=== PATIENT | male | born 1960 | race Caucasian/White ===

== ENCOUNTER 2016-10-28 17:35 | Emergency (ER) | payer OTHER ==
[2016-10-28 18:54] LABS: Hematocrit 38.7 % (42.0-52.0); Hemoglobin 13.1 gm/dL (13.5-18.0); Mean Cell Volume 85.6 fl (78-100); Mean Corpuscular Hgb Conc 33.9 g/dl (32-36); Mean Platelet Volume 8.7 fl (6.0-9.5); Platelet Count 253 K/mm3 (150-450); Red Blood Count 4.52 M/mm3 (4.7-6.0); Red Cell Distribution Width 12.3 % (11.5-14.0); White Blood Count 13.5 K/mm3 (4.0-10.5)
[2016-10-28 19:07] LABS: Total Cells Counted 100
--- NOTE | 2016-10-28 19:09 | ERNOTE ---
<Gabby Seals - Last Filed: 10/28/16 21:04> Syncope ER HPI Stated Complaint: poss stroke Source: family, EMS Exam Limitations: clinical condition Allergies/Adverse Reactions: Allergies ampicillin [Ampicillin] Allergy (Verified 07/17/12 19:31) Home Medications: HOME MEDICATIONS Coricidin Hbp Cold & Flu Tab PRN 07/17/12 [Last Taken 07/17/12 18:00] Lisinopril [Zestril] 40 mg PO ONCE 07/17/12 [Last Taken Unknown] Simvastatin [Simvastatin (Zocor)] 40 mg PO HS 07/17/12 [Last Taken Unknown] glipiZIDE [Glipizide ER] 5 mg PO DAILY 07/17/12 [Last Taken Unknown] metFORMIN HCL [Glucophage Xr] 1,000 mg PO DAILY 07/17/12 [Last Taken Unknown] Ondansetron HCl [Zofran] 1 - 2 tab PO Q8H PRN #10 tab 10/28/16 [Last Taken Unknown] - History of Present Illness Narrative: Patient has a history of hypertension and two CVAs, the second of which left him with a right sided deficit.He has been in the senior living since, also has a possible history of seizures. Per senior living he went to the bathroom with assistance when he became less responsive, diaphorectic and his blood pressure dropped to the 80's systolic. He never lost consciousness, did not fall, no injury. Patient came by EMS and denies any current problems. Limited history is available from patient Prior Episodes: Present: no prior history Character of event: Present: no loss of consciousness Location of Injury: Present: none Current Symptoms: Absent: blurred vision Review of Systems - Narrative Narrative: limited history available from patient - Review of Systems Constitutional: Absent: recent illness, fever Respiratory: Absent: shortness of breath Cardiology: Absent: chest pain Gastrointestinal/Abdominal: Absent: nausea, vomiting, abdominal pain Genitourinary: Present: no symptoms reported Neurological: Absent: headache - Patient's Past Medical History Patient History - Medical: Diabetes Type 2 Patient History - Cardiac/Respiratory: Hypertension, Hyperlipidemia - Social History Living Situations: senior living Physical Exam - Physical Exam General Appearance: Present: wd/wn, alert, no apparent distress Eye Exam: Normal inspection: bilateral, PERRL: bilateral Ears, Nose, Throat: Present: normal pharynx Respiratory: Present: no respiratory distress, normal breath sounds, no accessory muscle use, lungs clear Cardiovascular/Chest: Present: regular rate, rhythm, no murmur Gastrointestinal/Abdominal: Present: normal bowel sounds, nontender, nondistended, soft Extremity Exam: Present: no edema Neurological Exam: Present: alert, normal mood/affect, disoriented to situation , other - right sided weakness chronic Skin Exam: Present: normal color, warm/dry ED Progress - Results and Orders Patient's Lab Results:: I have reviewed the patient's lab results. - Vital Signs Patient's Vital Signs:: I have reviewed the patient's vital signs. Vital Signs: Vital Signs 10/28/16 10/28/16 18:12 18:55 Temperature 37.0 C 37.0 C Pulse Rate 83 82 Respiratory 20 18 Rate Blood Pressure 113/66 124/81 O2 Sat by Pulse 99 97 Oximetry - EKG EKG: NSR, LBBB - incomplete, nonspecific ST T wave changes, other - no acute changes, no previous EKG read: Interp. by me - Progress/Reassessment Chief Complaint: Altered Mental Status Progress Note-Subjective: 10/28/16 21:08 patient has had two large diarrheal stools, BP stable, will get abdomen Xray and sign out to oncoming ERP - Transfer of Care Physician Sign Out: Gabby Seals Receiving Physician: Wesley Ramon Departure Clinical Impression: Vasovagal near syncope, Gastroenteritis - Departure Disposition: Home Follow Up Needed Condition: Fair Instructions: Viral Gastroenteritis, Adult, [id number] Prescriptions: Ondansetron HCl [Zofran] 1 - 2 tab PO Q8H PRN #10 tab PRN Reason: Nausea <Wesley Ramon - Last Filed: 10/29/16 04:05> ED Progress - Vital Signs Vital Signs: Vital Signs 10/28/16 10/28/16 10/28/16 18:12 18:23 18:55 Temperature 37.0 C 37.0 C Pulse Rate 83 88 82 Respiratory 20 18 Rate Blood Pressure 113/66 124/81 O2 Sat by Pulse 99 97 Oximetry 10/28/16 10/28/16 10/28/16 19:26 19:48 20:23 Temperature Pulse Rate 87 84 82 Respiratory 18 20 18 Rate Blood Pressure 113/61 116/69 113/66 O2 Sat by Pulse 99 98 99 Oximetry 10/28/16 10/28/16 10/28/16 21:27 21:55 22:05 Temperature Pulse Rate 87 88 85 Respiratory 18 20 18 Rate Blood Pressure 107/69 98/57 112/71 O2 Sat by Pulse 98 97 99 Oximetry 10/28/16 22:34 Temperature Pulse Rate 86 Respiratory 20 Rate Blood Pressure 127/80 O2 Sat by Pulse 98 Oximetry - X-Ray X-Ray #1 X-Ray: abdomen Interpretation: Interp. by nh X-ray Comments: Non-specific bowel gas pattern associated with diarrhea. No free air no obstruction - Progress/Reassessment Progress Note-Subjective: 10/28/16 22:[address] Seals. xray and lab work reviewed. Pt examined. Pt alert, denies symptoms at this time. BP has been stable.
[2016-10-28 19:16] LABS: ALT 44 U/L (19-67); AST 21 U/L (0-48); Albumin * 3.3 gm/dl (3.4-5.0); Alkaline Phosphatase * 53 U/L (50-170); Anion Gap 10.4 mmol/L (6.8-13.8); BUN/Creatinine Ratio 14.9 (9.0-21.6); Bilirubin, Total 0.4 mg/dL (0.0-1.1); Blood Urea Nitrogen 23 mg/dL (6-23); Ca. Corrected For Albumin 8.9 mg/dL (8.4-10.2); Calcium * 8.7 mg/dL (7.9-10.9); Carbon Dioxide 30.3 mmol/L (24-32.6); Chloride 102 mmol/L (97-106); Glucose * 147 mg/dL (70-110); Potassium 3.7 mmol/L (3.4-4.6); Sodium 139 mmol/L (132-142); Total Protein 6.3 gm/dL (6.2-8.2); Troponin I Less than 0.017 ng/ml (0.00-0.10)
[2016-10-28 19:19] LABS: Atypical (Reactive) Lymph 3 % (0-2); Band 3 % (0-2.0); Lymphocyte 7 % (20-51); Monocyte 4 % (0-9); Neutrophil 83 % (42-75); Neutrophil # 11.2 K/mm3 (1.3-6.0); Platelet Estimate Normal (NORMAL); RBC Morphology Normal (NORMAL)
[2016-10-28 21:43] LABS: Urine Bilirubin Negative (NEGATIVE); Urine Blood Negative /ul (NEGATIVE); Urine Ketone 5 mg/dL (NEGATIVE); Urine Nitrite Negative (NEGATIVE); Urine Protein Negative (NEGATIVE); Urine Specific Gravity 1.025 SP.GR. (1.005-1.030); Urine Urobilinogen Normal (NORMAL); Urine pH 5.5 pH (5.0-7.0)
[2016-10-28 21:52] LABS: Urine Appearance Clear; Urine Bacteria 4+; Urine Color Yellow; Urine RBC None Seen /hpf (0-5); Urine WBC 0-5 /hpf (0-5)
[2016-10-28] MEDS ORDERED: ONDANSETRON 4 MG TAB.RAPDIS PO ONE (23:00)
[2016-10-28] MEDS ORDERED: ONDANSETRON 4 MG TAB.RAPDIS ONE (23:02)
[2016-10-29 01:10] VITALS: BP 113/68
--- OUTSIDE RECORDS SUMMARY | 2016-10-29 11:10 | XMS REPORT | Continuity of Care Document ---
:1960 Author Organization [facility] ([facility]) Address [address] [place] [address] Phone [phone] Care Team Providers Name Role Phone Angel Apple Primary Care Provider [phone] Source Comments This disclosure is being made pursuant to the Care Everywhere program, applicable federal and state laws, and may not contain all informaitonavailable regarding this patient.[facility] ([facility]) Active Allergies and Adverse Reactions No Known Allergies Current Medications Prescription Sig. Disp. Refills Start Date End Date Status amLODIPine 10 mg tablet Take 10 mg by Active mouth daily. clopidogrel 75 mg tablet Take 75 mg by Active mouth daily. loratadine 10 mg tablet Take 10 mg by Active mouth daily. doxazosin 4 mg tablet Take 4 mg by Active mouth daily. glipiZIDE 5 mg tablet Take 5 mg by Active mouth daily. hydrochlorothiazide 50 mg Take 50 mg by Active tablet mouth daily. lisinopril 40 mg tablet Take 40 mg by Active mouth daily. metFORMIN 1,000 mg tablet Take 1,000 mg by Active mouth daily. levETIRAcetam 250 mg tablet Take 500 mg by Active mouth at bedtime. 250mg in AM levothyroxine 25 mcg tablet Take 25 mcg by Active mouth every morning before breakfast. simvastatin 20 mg tablet Take 20 mg by Active mouth every evening. PARoxetine 30 mg tablet Take 30 mg by Active mouth daily. aspirin 325 mg tablet Take 325 mg by Active mouth daily. metoPROLol tartrate 100 mg Take 100 mg by Active tablet mouth 2 times daily. Active Problems Problem Noted Date CVA (cerebral vascular accident) Hyperlipidemia Hypertension Depression Hemiparesis affecting dominant side as late effect of cerebrovascular accident Coronary artery disease Sleep apnea Diabetes mellitus Asymptomatic PVCs Social History Tobacco Use Types Packs/Day Years Used Date Never Smoker Alcohol Use Drinks/Week oz/Week Comments No Last Filed Vital Signs Vital Sign Reading Time Taken Blood Pressure 100/62 02/19/2016 1:32 PM CDT Pulse 70 02/19/2016 1:32 PM CDT Temperature - - Respiratory Rate - - Height - - Weight 102.513 kg (226 lb) 02/19/2016 1:32 PM CDT Body Mass Index - - Oxygen Saturation - - Plan of Care Health Maintenance Due Date Last Done Comments HCV Screening 1960 Hepatitis B Vaccine (1 of 3 - Primary Series) 1960 Tdap Vaccine 1973 DIABETIC: Cholesterol 1980 Diabetic: Hdl 1980 DIABETIC: Hemoglobin A1C 1980 Diabetic: Ldl 1980 DIABETIC: Microalbumin 1980 DIABETIC: Triglycerides 1980 MMR Vaccine 1980 Td Vaccine 1980 Pneumococcal Vaccine (1 of 1 - PPSV23) 1981 Colonoscopy 05/08/2012 Prostate Cancer Screening 2012 Influenza Vaccine: Seasonal (#1) 12/31/2015 DIABETIC: Foot Exam 02/03/2016 DIABETIC: Retinal Eye Exam 02/03/2016 Results from Last 3 Months Not on file
== END 2016-10-29 00:30 | disposition home or self-care (01) ==
LOC: ER 17:35
DX: R55 Syncope and collapse (principal); A08.4 Viral intestinal infection, unspecified

== ENCOUNTER 2016-10-29 11:58 | Inpatient (IN) | payer OTHER ==
--- NOTE | 2016-10-29 12:33 | ERNOTE ---
Medical Problem HPI - Narrative Date of Service: 10/29/16 - General Chief Complaint: Nausea/Vomiting Time Seen by Provider: 10/29/16 12:31 Source: patient, family, old records Exam Limitations: other - patient unable to give much history - Immun/Allergies/Home Medications Immunizations: IMMUNIZATION HX Immunizations Up to Date Yes History of Influenza Vaccine Yes Allergies/Adverse Reactions: Allergies ampicillin [Ampicillin] Allergy (Verified 10/29/16 12:04) Home Medications: HOME MEDICATIONS Coricidin Hbp Cold & Flu Tab PRN 07/17/12 [Last Taken 07/17/12 18:00] Lisinopril [Zestril] 40 mg PO ONCE 07/17/12 [Last Taken Unknown] Simvastatin [Simvastatin (Zocor)] 40 mg PO HS 07/17/12 [Last Taken Unknown] glipiZIDE [Glipizide ER] 5 mg PO DAILY 07/17/12 [Last Taken Unknown] metFORMIN HCL [Glucophage Xr] 1,000 mg PO DAILY 07/17/12 [Last Taken Unknown] Ondansetron HCl [Zofran] 1 - 2 tab PO Q8H PRN #10 tab 10/28/16 [Last Taken Unknown] - History of Present History Narrative: 56 y/o male brought to the ED by ambulance for low blood pressure. He was evaluated here yesterday for diarrhea. This has continued today. He was also reported to be vomiting but the patient and his family deny any emesis. He had several episodes of diarrhea in the department last night. He tested negative for C.Diff. The stool was also hemocult negative. His urine showed 4+ bacteria. The preliminary urine culture shows no growth. His WBC was elevated at 13.5. His abdominal films showed scattered air fluid levels consistent with diarrhea. His blood sugar is reported to have been 299 [facility] the [facility] today. 1459 - Spoke with his nurse from [facility], she reports that his diarrhea started yesterday and he has not been vomiting. She also reports that there have not been other residents with GI symptoms. Review of Systems - Review of Systems Constitutional: Present: fatigue, malaise, decreased activity level. Absent: fever, chills EYE: Present: no symptoms reported ENT: Present: no symptoms reported Respiratory: Absent: shortness of breath, cough Cardiology: Absent: chest pain, syncope Gastrointestinal/Abdominal: Present: nausea, diarrhea, abdominal pain - cramping prior to bowel movements, eating less, drinking less. Absent: vomiting Genitourinary: Absent: dysuria Musculoskeletal: Present: no symptoms reported Skin: Absent: rash, lesions, change in color Neurological: Absent: headache, dizziness/light-headedness Endocrine: Present: no symptoms reported Hematologic/Lymphatic: Present: no symptoms reported Psych: Present: no symptoms reported - Patient's Past Medical History Patient History - Medical: Diabetes Type 2, Depression, Hypothyroidism, Obesity , Seizures Patient History - Cardiac/Respiratory: Coronary Heart Disease, CVA/Stroke, Hypertension, Hyperlipidemia Patient History - Cancer: No Hx of Cancer Patient History - Surgical Procedures: No surgical history Patient History - Other: None - Social History [facility] Abuse History: No History of abuse Psych History: No pertinent hx Smoking Status: Never smoker Alcohol Use: none Drug Use: none - Immunizations Immunizations Up to Date: Yes History of Influenza Vaccine: Yes Physical Exam - Physical Exam General Appearance: Present: alert, no apparent distress, obese Eye Exam: Normal inspection: bilateral Neck: Present: normal inspection, nontender, supple Respiratory: Present: no respiratory distress, normal breath sounds, no accessory muscle use, lungs clear Cardiovascular/Chest: Present: no murmur, normal peripheral pulses, tachycardia Gastrointestinal/Abdominal: Present: soft, tenderness, abnormal bowel sounds - hyeractive, distended - obese Extremity Exam: Present: normal inspection, no edema Neurological Exam: Present: alert, oriented, normal mood/affect Skin Exam: Present: normal color, warm/dry ED Progress - Results and Orders Patient's Lab Results:: I have reviewed the patient's lab results. - Vital Signs Patient's Vital Signs:: I have reviewed the patient's vital signs. Vital Signs: Vital Signs 10/29/16 11:59 Temperature 37.2 C Pulse Rate 99 Respiratory 18 Rate Blood Pressure 95/60 O2 Sat by Pulse 96 Oximetry - CT/Ultrasound CT/Ultrasound Narrative: Technique: CT Abdomen/Pelvis W/O Contrast Findings: Exam is limited due to lack of IV and oral contrast. Lung bases are essentially clear. The liver and spleen appear unremarkable on noncontrast imaging. No secondary signs of inflammatory change within the gallbladder. No calcified gallstones. Adrenal glands are within normal limits. There is no nephrolithiasis or obstructive uropathy. The pancreas demonstrates no peripancreatic inflammatory change. There is a small hiatal hernia. The stomach is distended. No evidence for intestinal obstruction appreciated. The appendix is normal. The colon is slightly redundant and fluid-filled compatible with diarrhea. Nonspecific density within the mesentery of the left lower quadrant could represent reactive lymph nodes or focal nonaggressive inflammatory change. Bladder is unremarkable. There is some atherosclerosis of the aorta. No free air or free fluid. No loculated fluid collection. Fat- containing left inguinal hernia. Osseous structures demonstrate no suspicious abnormality. IMPRESSION: 1. No definable acute intra-abdominal or pelvic process on this noncontrast CT scan. Please see findings above. Electronically signed by Alex Jacobo M.D.. - Progress/Reassessment Chief Complaint: Nausea/Vomiting Progress:: Improved Progress Note-Subjective: 10/29/16 14:[address], now vomiting. Zofran ordered. 2nd liter of IV NS infusing. 10/29/16 15:12 No improvement with Zofran. Reglan ordered. Dr. Conner contacted regarding admission, will admit obs status. Lactic acid 3.4 with a significant decline in renal function today, likely d/t dehydration. WBC has decreased from 13.5 to 9.3. Blood cultures are pending. Urine culture from yesterday's visit also pending (prelim negative). Stool culture and repeat CDiff ordered but no stool has yet been collected today. BP has improved with fluids and is currently 136/ 78. HR primary in 90's after running in the low 100's initially. Will order Cipro and Flagyl empirically. Patient and family in agreement with plan. Departure - Departure Clinical Impression: Vomiting and diarrhea, Dehydration, Acute renal injury due to hypovolemia Disposition: [facility] Condition: Fair
[2016-10-29] MEDS ORDERED: NORMAL SALINE 1,000 ML IV ONE ×3 (12:39→15:23)
[2016-10-29 12:50] LABS: Hematocrit 41.4 % (42.0-52.0); Hemoglobin 14.2 gm/dL (13.5-18.0); Mean Cell Volume 84.3 fl (78-100); Mean Corpuscular Hemoglobin 28.9 pg (27-31); Mean Corpuscular Hgb Conc 34.3 g/dl (32-36); Mean Platelet Volume 9.1 fl (6.0-9.5); Neutrophil # 7.9 K/mm3 (1.3-6.0); Neutrophil % 84.9 % (42-75.0); Platelet Count 248 K/mm3 (150-450); Red Blood Count 4.91 M/mm3 (4.7-6.0); Red Cell Distribution Width 12.4 % (11.5-14.0); White Blood Count 9.3 K/mm3 (4.0-10.5)
--- OUTSIDE RECORDS SUMMARY | 2016-10-29 13:05 | XMS REPORT | Continuity of Care Document ---
:1960 Author Organization [facility] ([facility]) Address [address] [place] [address] Phone [phone] Care Team Providers Name Role Phone Angel Apple Primary Care Provider [phone] Source Comments This disclosure is being made pursuant to the Care Everywhere program, applicable federal and state laws, and may not contain all informaitonavailable regarding this patient.[facility] ([facility]) Active Allergies and Adverse Reactions No Known [...]
[2016-10-29 13:07] LABS: Albumin * 3.2 gm/dl (3.4-5.0); BUN/Creatinine Ratio 18.6 (9.0-21.6); Bilirubin, Total 0.3 mg/dL (0.0-1.1); Ca. Corrected For Albumin 8.7 mg/dL (8.4-10.2); Calcium * 8.4 mg/dL (7.9-10.9); Carbon Dioxide 24.8 mmol/L (24-32.6); Potassium 3.8 mmol/L (3.4-4.6); Total Protein 6.4 gm/dL (6.2-8.2)
[2016-10-29] MEDS ORDERED: ONDANSETRON HCL/PF 2 MG/ML VIAL ONE (14:40)
[2016-10-29] MEDS ORDERED: ONDANSETRON HCL/PF 2 MG/ML VIAL IV ONE (14:40)
[2016-10-29] MEDS ORDERED: METOCLOPRAMIDE HCL 5 MG/ML VIAL IV ONE (15:12)
--- OUTSIDE RECORDS SUMMARY | 2016-10-29 15:15 | XMS REPORT | Continuity of Care Document ---
:1960 Author Organization [facility] ([facility]) Address [address] [place] [address] Phone [phone] Care Team Providers Name Role Phone Angel Apple Primary Care Provider [phone] Source Comments This disclosure is being made pursuant to the Care Everywhere program, applicable federal and state laws, and may not contain all informaitonavailable regarding this patient.[facility] ([facility]) Active Allergies and Adverse Reactions No [...]
[2016-10-29] MEDS ORDERED: METOCLOPRAMIDE HCL 5 MG/ML VIAL ONE (15:16)
[2016-10-29] MEDS ORDERED: CIPROFLOXACIN LACTATE/D5W 400 MG/200 ML BAG IV SCH (15:30)
[2016-10-29] MEDS ORDERED: NORMAL SALINE 200 ML IV ONE (16:00)
[2016-10-29] MEDS ORDERED: ACETAMINOPHEN 325 MG TABLET PO PRN (16:38)
[2016-10-29] MEDS ORDERED: ONDANSETRON 4 MG TAB.RAPDIS PO PRN (16:38)
[2016-10-29] MEDS ORDERED: ONDANSETRON HCL/PF 2 MG/ML VIAL IV PRN (16:39)
--- NOTE | 2016-10-29 16:52 | HP ---
Chief Complaint - Chief Complaint Date of Service: 10/29/16 Time of Service: 16:48 Chief Complaint: Diarrhea History of Present Illness: The patient is a 56-year-old male who was brought to the emergency department via ambulance both last night and again this morning. I am his primary care provider and I was contacted yesterday by [facility] and was told that the patient was having diarrhea and his blood pressure was low and he was somewhat lethargic. Orders were given for the patient to be brought to the emergency department for further evaluation. The patient ended up being discharged back to his care facility yesterday evening. This morning I received another phone call from the facility stating that the patient's blood pressure was again low and he was lethargic. I again instructed them to have the patient brought to the emergency department for evaluation. There was no mention of bloody stools or black, tarry stools. The patient denies any abdominal pain but states he feels nauseated and has vomited multiple times and has also had multiple episodes of watery diarrhea. He states the diarrhea has been an issue for the past 3-4 days. According to the patient's care facility, there are no other residents at the facility with similar symptoms. The patient will be admitted to inpatient status for intravascular volume depletion secondary to diarrhea, acute kidney injury, hypotension with tachycardia. - Patient's Past Medical History Patient History - Medical: Diabetes Type 2, Depression, Hypothyroidism, Obesity , Seizures Patient History - Cardiac/Respiratory: Coronary Heart Disease, CVA/Stroke, Hypertension, Hyperlipidemia Patient History - Cancer: No Hx of Cancer Patient History - Surgical Procedures: No surgical history Patient History - Other: None - Family History Grandfather-Paternal Family History - Medical: Family History - Cardiac/Respiratory: Myocardial Infarction - [place] at age 45 Mother Family History - Medical: Diabetes Type 2 Family History - Cardiac/Respiratory: Hypertension - Social History Living Situations: jail Abuse History: No History of abuse Psych History: No pertinent hx Does anyone smoke in the home?: No Smoking Status: Never smoker Have you smoked in the past 12 months: No Do you dip or chew tobacco: No Patient requests Smoking Cessation Consult: No Initiate information on Smoking Cessation: No Alcohol Use: none Drug Use: none - Immunizations Immunizations Up to Date: Yes History of Influenza Vaccine: Yes Review Of Systems (GEN) - Review of Systems Generalized/Overall Review: Present: Weakness, Fatigue. Absent: Fever EENTM: Present: No Symptoms Reported Respiratory: Present: No Symptoms Reported Cardiac: Present: No Symptoms Reported Abdominal: Present: Nausea, Vomiting, Diarrhea. Absent: Abdominal Pain Genitourinary: Present: No Symptoms Reported Musculoskeletal: Present: No Symptoms Reported Neurological: Present: Weakness - chronic right sided weakness Skin: Present: No Symptoms Reported Endocrine: Present: No Symptoms Reported Misc: All systems neg except as marked Immunizations: IMMUNIZATION HX Immunizations Up to Date Yes History of Influenza Vaccine Yes Allergies/Adverse Reactions: Allergies Allergy/AdvReac Type Severity Reaction Status Date / Time ampicillin [Ampicillin] Allergy Verified 10/29/16 12:04 Home Medications: HOME MEDICATIONS Coricidin Hbp Cold & Flu Tab PRN 07/17/12 [Last Taken 07/17/12 18:00] Acetaminophen [Tylenol] 650 mg PO Q4H PRN 10/29/16 [Last Taken Unknown] Amlodipine Besylate 5 mg PO 10/29/16 [Last Taken Unknown] Amoxicillin 500 mg PO PRN PRN 10/29/16 [Last Taken Unknown] Aspirin 325 mg PO DAILY 10/29/16 [Last Taken Unknown] Atorvastatin Calcium 40 mg PO HS 10/29/16 [Last Taken Unknown] Bisacodyl [Dulcolax Suppository] 10 mg RC DAILY PRN 10/29/16 [Last Taken Unknown ] Chlorhexidine Gluconate [Chlorhexidine Gluconate 0.12%] 10 ml MM BID 10/29/16 [ Last Taken Unknown] Chlorthalidone [Hygroton] 50 mg PO DAILY 10/29/16 [Last Taken Unknown] Clopidogrel Bisulfate [Plavix] 75 mg PO DAILY 10/29/16 [Last Taken Unknown] Dextran 70/Hypromellose [Nature's Tears Eye Drops] 15 ml OP TID PRN 10/29/16 [ Last Taken Unknown] Diazepam [Diastat Rectal Gel] 10 mg RC DAILY PRN 10/29/16 [Last Taken Unknown] Diphenhydramine HCl [Diphenhist] 25 mg PO QID PRN 10/29/16 [Last Taken Unknown] Doxazosin Mesylate 8 mg PO DAILY 10/29/16 [Last Taken Unknown] Eyelid Cleanser Comb No.7 [Ocusoft Lid Scrub] 1 each TP PRN 10/29/16 [Last Taken Unknown] Glucagon,Human Recombinant [Glucagen] 1 mg IJ PRN PRN 10/29/16 [Last Taken Unknown] Lactulose [Enulose] 30 ml PO DAILY PRN 10/29/16 [Last Taken Unknown] Levothyroxine Sodium [Synthroid] 25 mcg PO DAILY 10/29/16 [Last Taken Unknown] Lisinopril [Zestril] 40 mg PO DAILY 10/29/16 [Last Taken Unknown] Loratadine 10 mg PO DAILY 10/29/16 [Last Taken Unknown] Magnesium Hydroxide [Milk Of Magnesia] 30 ml PO DAILY PRN 10/29/16 [Last Taken Unknown] Metoprolol Tartrate [Lopressor] 100 mg PO BID 10/29/16 [Last Taken Unknown] Naphazoline HCl/Pheniramine [Visine-A Eye Drops] 15 ml OP TID PRN 10/29/16 [ Last Taken Unknown] Ondansetron [Zuplenz] 4 mg PO Q8H PRN 10/29/16 [Last Taken Unknown] PARoxetine HCL [Paxil] 10 mg PO DAILY 10/29/16 [Last Taken Unknown] Polyethylene Glycol 3350 [Miralax] 17 gm PO DAILY 10/29/16 [Last Taken Unknown] Sennosides/Docusate Sodium [Senokot-S] 2 tab PO BID 10/29/16 [Last Taken Unknown ] glipiZIDE [Glipizide] 10 mg PO BID 10/29/16 [Last Taken Unknown] levETIRAcetam [Levetiracetam] 250 mg PO QAM 10/29/16 [Last Taken Unknown] levETIRAcetam [Levetiracetam] 500 mg PO QPM 10/29/16 [Last Taken Unknown] metFORMIN HCL [Fortamet] 1,000 mg PO DAILY 10/29/16 [Last Taken Unknown] sitaGLIPtin PHOSPHATE [Januvia] 100 mg PO DAILY 10/29/16 [Last Taken Unknown] Exam - Exam Vital Signs: Vital Signs - Last Taken Temp 36.3 C L 10/29/16 16:13 Pulse 111 H 10/29/16 16:13 Resp 18 10/29/16 16:13 BP 94/66 10/29/16 16:13 Pulse Ox 97 10/29/16 16:13 Constitutional: Present: Alert, Cooperative, No distress, Obese ENT Exam: Present: hearing grossly normal, dry mucous membranes Eye Exam: bilateral eye: normal inspection, EOMI Respiratory: Present: lungs clear, normal breath sounds, no respiratory distress , no accessory muscle use Cardiovascular/Chest: Present: regular rate, rhythm, no murmur, edema - Trace edema in bilateral lower extremities Abdomen: Present: soft, nontender, obese, other - Hyperactive bowel sounds, distended. Absent: rigidity Extremity: Present: non-tender, lower extremity edema - Trace edema in bilateral lower extremities Neurologic: Present: alert, motor weakness, other - Right upper and lower extremity weakness and spasticity present secondary to history of stroke Appearance: Present: appropriate appearance, no memory impairment Eye contact: Present: cooperative Thoughts: Present: no apparent hallucination Diagnostic Studies: Abnormal Lab Results 10/29/16 Range/Units 15:30 Lactic Acid, Venous 2.8 H* (0.4-1.9) mmol/L Laboratory Results WBC 9.3 K/mm3 (4.0-10.5) D 10/29/16 12:43 RBC 4.91 M/mm3 (4.7-6.0) 10/29/16 12:43 Hgb 14.2 gm/dL (13.5-18.0) 10/29/16 12:43 Hct 41.4 % (42.0-52.0) L 10/29/16 12:43 MCV 84.3 fl (78-100) 10/29/16 12:43 MCH 28.9 pg (27-31) 10/29/16 12:43 MCHC 34.3 g/dl (32-36) 10/29/16 12:43 RDW 12.4 % (11.5-14.0) 10/29/16 12:43 Plt Count 248 K/mm3 (150-450) 10/29/16 12:43 MPV 9.1 fl (6.0-9.5) 10/29/16 12:43 Immature Gran % (Auto) 0.30 % (0.001-0.429) 10/29/16 12:43 Immature Gran # (Auto) 0.03 K/mm3 (0.000-0.0310) 10/29/16 12:43 Neutrophils % 84.9 % (42-75.0) H 10/29/16 12:43 Lymphocytes % 6.9 % (20-51) L 10/29/16 12:43 Monocytes % 6.2 % (0.0-9) 10/29/16 12:43 Eosinophils % 1.6 % (0.0-3.0) 10/29/16 12:43 Basophils % 0.1 % (0.0-1.0) 10/29/16 12:43 Nucleated RBC % 0.0 k/mm3 (0-1) 10/29/16 12:43 Neutrophils # 7.9 K/mm3 (1.3-6.0) H 10/29/16 12:43 Lymphocytes # 0.6 k/mm3 (1.5-3.5) L 10/29/16 12:43 Monocytes # 0.6 k/mm3 (0.0-1.0) 10/29/16 12:43 Eosinophils # 0.2 k/mm3 (0.0-0.7) 10/29/16 12:43 Absolute Basophils 0.0 k/mm3 (0.0-0.1) 10/29/16 12:43 Sodium 139 mmol/L (132-142) 10/29/16 12:43 Plasma Sodium 142 mmol/L (130-142) 10/29/16 12:43 Potassium 3.8 mmol/L (3.4-4.6) 10/29/16 12:43 Chloride 101 mmol/L (97-106) 10/29/16 12:43 Carbon Dioxide 24.8 mmol/L (24-32.6) 10/29/16 12:43 Anion Gap 17.0 mmol/L (6.8-13.8) H 10/29/16 12:43 BUN 42 mg/dL (6-23) H D 10/29/16 12:43 Creatinine 2.26 mg/dL (0.4-1.4) H D 10/29/16 12:43 Est GFR (Non-Af Amer) 32 mL/min (60-130) L D 10/29/16 12:43 BUN/Creatinine Ratio 18.6 (9.0-21.6) 10/29/16 12:43 Random Glucose 308 mg/dL (70-110) H D 10/29/16 12:43 Lactic Acid, Venous 2.8 mmol/L (0.4-1.9) H* 10/29/16 15:30 Calcium 8.4 mg/dL (7.9-10.9) 10/29/16 12:43 Calcium Adj for Albumin 8.7 mg/dL (8.4-10.2) 10/29/16 12:43 Total Bilirubin 0.3 mg/dL (0.0-1.1) 10/29/16 12:43 AST 12 U/L (0-48) 10/29/16 12:43 ALT 35 U/L (19-67) 10/29/16 12:43 Alkaline Phosphatase 55 U/L (50-170) 10/29/16 12:43 Total Protein 6.4 gm/dL (6.2-8.2) 10/29/16 12:43 Albumin 3.2 gm/dl (3.4-5.0) L 10/29/16 12:43 Assessment/Plan - Narrative Narrative: IMPRESSION & PLAN: Diarrhea -Likely infectious in etiology. Await stool culture results. Continue IV Cipro and flagyl. C.Diff negative and stool occult blood negative on 10/28/2016. -Clear liquid diet for now -Medications for N/V as needed -After completion of the IVF bolus currently running, start NS @ 150cc/hr. Monitor fluid status closely. Check daily weight. -I had discussed having the patient complete a screening colonoscopy at his office visit in July 2016. However, the family decided they were not interested in having a screening colonoscopy at that time. I will plan to discuss this again with the patient and the family as he would benefit from a colonoscopy approximately 8+ weeks after resolution of this acute event. Hyperlactatemia -Elevated lactic acid level secondary to hypoperfusion which is secondary to intravascular volume depletion. -Lactic acid level improving with aggressive IVF hydration -Recheck lactic acid level at 1940 Acute Kidney Injury -Pre-renal secondary to GI loss -Continue IVF hydration and recheck BMP in AM Asymptomatic Bacteriuria -Despite urine being sent for culture, there is no indication for treatment. CHRONIC MEDICAL CONDITIONS: CAD with prior PCI and coronary stent placement: Patient is on appropriate medications with dual-antiplatelet therapy (aspirin + plavix) and statin which will be continued during his hospital stay. Type 2 Diabetes Mellitus: Hold home diabetic medications for now with plans to resume on discharge. Monitor blood glucose AC, HS and PRN. Treat with medium dose correction insulin AC, HS. Hyperlipidemia: Continue home statin Essential Hypertension: Patients blood pressures currently on the lower side. Hold home antihypertensive medications for now and resume as able. 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 Continue home seizure medication - Keppra Hypothyroidism: Continue home dose of levothyroxine. Depression, anxiety, possible pseudobulbar affect (PBA): Continue home medications. DEAN: Continue home CPAP settings at all times while patient is sleeping. VTE prophylaxis: Heparin 5000 mg every 12 hours, bilateral knee-high compression stockings Code Status: Full code Disposition: I would expect that the patient would be admitted at least 2 midnights. We will continue to monitor his clinical course with plans for discharge back to the medicine once patient is stable. - Assessment/Plan (1) Acute renal injury due to hypovolemia Problem: Acute (2) Dehydration Problem: Acute (3) Vomiting and diarrhea Problem: Acute (4) Gastroenteritis Problem: Acute
[2016-10-29] MEDS: NORMAL SALINE 1,000 ML IV PRN (17:29)
[2016-10-29] MEDS: metroNIDAZOLE/SODIUM CHLORIDE 500 MG/100 ML BAG IV SCH (17:29)
[2016-10-29] MEDS: HEPARIN SODIUM,PORCINE 5,000 UNITS/ML VIAL SC SCH (17:34)
[2016-10-29] MEDS ORDERED: POLYVINYL ALCOHOL 150 DROP BTL OP PRN (17:36)
[2016-10-29] MEDS ORDERED: DIAZEPAM 10 MG RC PRN (17:36)
[2016-10-29] MEDS ORDERED: diphenhydrAMINE HCL 25 MG CAPSULE PO PRN (17:36)
[2016-10-29] MEDS: INSULIN LISPRO 100 UNITS/ML VIAL SC SCH (17:57)
[2016-10-29] MEDS: CIPROFLOXACIN LACTATE/D5W 400 MG/200 ML BAG IV SCH (19:03)
[2016-10-29] MEDS: ROSUVASTATIN CALCIUM 10 MG TABLET PO SCH (21:06)
[2016-10-29] MEDS: CHLORHEXIDINE GLUCONATE 15 ML UDC MM SCH (21:06)
[2016-10-30] MEDS: metroNIDAZOLE/SODIUM CHLORIDE 500 MG/100 ML BAG IV SCH ×4 (00:14→23:52)
[2016-10-30] MEDS ORDERED: NORMAL SALINE 1,000 ML IV ONE (00:34)
[2016-10-30] MEDS ORDERED: NORMAL SALINE 1,000 ML IV PRN (00:35)
[2016-10-30] MEDS: NORMAL SALINE 1,000 ML IV PRN ×3 (02:17→15:18)
[2016-10-30] MEDS ORDERED: PROMETHAZINE HCL 12.5 MG in DEXTROSE 5 % IN WATER 50 ML IV PRN ×2 (04:13)
[2016-10-30] MEDS: CIPROFLOXACIN LACTATE/D5W 400 MG/200 ML BAG IV SCH ×2 (04:32→16:59)
[2016-10-30] MEDS: ONDANSETRON HCL/PF 2 MG/ML VIAL IV PRN ×2 (04:32→16:10)
[2016-10-30] MEDS: HEPARIN SODIUM,PORCINE 5,000 UNITS/ML VIAL SC SCH ×2 (04:33→16:10)
[2016-10-30 05:38] LABS: Hematocrit 36.2 % (42.0-52.0); Hemoglobin 12.1 gm/dL (13.5-18.0); Mean Cell Volume 86.8 fl (78-100); Mean Corpuscular Hgb Conc 33.4 g/dl (32-36); Mean Platelet Volume 9.2 fl (6.0-9.5); Platelet Count 196 K/mm3 (150-450); Red Blood Count 4.17 M/mm3 (4.7-6.0); Red Cell Distribution Width 12.7 % (11.5-14.0)
[2016-10-30 05:46] LABS: Total Cells Counted 100
[2016-10-30 05:55] LABS: Anion Gap 13.3 mmol/L (6.8-13.8); Carbon Dioxide 24.6 mmol/L (24-32.6); Estimated Creat Clear 48.6; Potassium 2.9 mmol/L (3.4-4.6)
[2016-10-30 06:37] LABS: Band 31 % (0-2.0); Eosinophil 3 % (0-3); Immature Granulocyte 3 (0-1); Lymphocyte 17 % (20-51); Monocyte 10 % (0-9); Neutrophil 36 % (42-75); Neutrophil # 1.4 K/mm3 (1.3-6.0)
[2016-10-30 06:38] LABS: Platelet Estimate Normal (NORMAL)
[2016-10-30 06:39] LABS: Dohle Bodies Trace
[2016-10-30 06:40] LABS: RBC Morphology Normal (NORMAL); Toxic Granulation Trace
[2016-10-30] MEDS: INSULIN LISPRO 100 UNITS/ML VIAL SC SCH ×3 (07:25→17:45)
[2016-10-30] MEDS: LEVOTHYROXINE SODIUM 25 MCG TABLET PO SCH (07:25)
[2016-10-30] MEDS: POTASSIUM CHLORIDE 100 ML IV SCH ×3 (07:26→10:21)
[2016-10-30] MEDS ORDERED: PARoxetine HCL 10 MG TABLET PO SCH (09:00)
[2016-10-30] MEDS ORDERED: ASPIRIN 325 MG TABLET.DR PO SCH (09:00)
[2016-10-30] MEDS ORDERED: CLOPIDOGREL BISULFATE 75 MG TABLET PO SCH (09:00)
[2016-10-30] MEDS ORDERED: LORATADINE 10 MG TABLET PO SCH (09:00)
[2016-10-30] MEDS ORDERED: levETIRAcetam 500 MG TABLET PO SCH ×2 (09:00→17:00)
[2016-10-30] MEDS: CHLORHEXIDINE GLUCONATE 15 ML UDC MM SCH ×2 (09:58→20:14)
[2016-10-30] MEDS: POTASSIUM CHLORIDE 40 MEQ/15 ML BTL PO SCH ×2 (10:13→20:14)
--- NOTE | 2016-10-30 16:41 | PN ---
Subjective - Date and Time Seen Date: 10/30/16 Time: 10:20 Subjective Narrative: Patient seen and examined at bedside this morning. No acute issues overnight. Overall, patient states that he is feeling much better than he was yesterday. He admits to still having some nausea and vomiting throughout the night as well as continuing to have diarrhea but admits that it has decreased in both frequency and quantity. Objective - Review of Systems Generalized/Overall Review: Reports: Weakness, Fatigue EENTM: Reports: No Symptoms Reported Respiratory: Reports: No Symptoms Reported Cardiac: Reports: No Symptoms Reported Abdominal: Reports: Nausea, Vomiting, Diarrhea. Denies: Abdominal Pain Genitourinary Symptoms: Reports: No Symptoms Reported Musculoskeletal Complaints: Reports: No Symptoms Reported Neurological: Reports: Weakness - Chronic right-sided weakness Skin: Reports: No Symptoms Reported Endocrine: Reports: No Symptoms Reported Misc: All systems neg except as marked - Vitals Vitals: Last Vital Signs Temp 36.6 C 10/30/16 14:29 Pulse 99 10/30/16 14:29 Resp 16 10/30/16 14:29 BP 128/71 10/30/16 14:29 Pulse Ox 99 10/30/16 14:29 - Abnormal Lab Findings Abnormal Lab Findings: Abnormal Lab Results 10/29/16 10/30/16 10/30/16 Range/Units 19:57 05:31 05:31 RBC 4.17 L (4.7-6.0) M/mm3 Hgb 12.1 L (13.5-18.0) gm/dL Hct 36.2 L (42.0-52.0) % Neutrophils % (Manual) 36 L (42-75) % Band Neuts % (Manual) 31 H (0-2.0) % Lymphocytes % (Manual) 17 L (20-51) % Monocytes % (Manual) 10 H (0-9) % Immature Granulocytes 3 H (0-1) Lymphocytes # (Manual) 0.7 L (1.5-3.5) k/mm3 Sodium 143 H (132-142) mmol/L Plasma Sodium 145 H (130-142) mmol/L Potassium 2.9 L D (3.4-4.6) mmol/L Chloride 108 H (97-106) mmol/L BUN 32 H (6-23) mg/dL Creatinine 1.68 H D (0.4-1.4) mg/dL Est GFR (Non-Af Amer) 45 L D (60-130) mL/min Random Glucose 238 H (70-110) mg/dL Lactic Acid, Venous 2.4 H* (0.4-1.9) mmol/L Calcium 7.0 L (7.9-10.9) mg/dL - Exam Constitutional: Present: Alert, Oriented x3, Cooperative, No distress, Obese ENT Exam: Present: hearing grossly normal, moist mucous membranes Respiratory: Present: lungs clear, normal breath sounds, no respiratory distress , no accessory muscle use Cardiovascular/Chest: Present: regular rate, rhythm, no murmur, edema - Trace edema in bilateral lower extremities Abdomen: Present: soft, nontender, obese, other - Hyperactive bowel sounds. Absent: rigidity Extremity: Present: non-tender, lower extremity edema - Trace edema in bilateral lower extremities Skin Exam: Present: normal color, warm/dry, no cyanosis Neurologic: Present: alert, other - Chronic right upper and lower extremity weakness and spasticity that is at baseline and is secondary to his previous stroke Appearance: Present: no memory impairment Eye contact: Present: cooperative Assessment/Plan Plan Narrative: IMPRESSION & PLAN: Diarrhea -Likely infectious in etiology. Preliminary report on stool cultures is no pathogens isolated. Continue IV Cipro and flagyl. C.Diff negative and stool occult blood negative on 10/28/2016. -Clear liquid diet for now and advance to a diabetic diet as tolerated -Medications for N/V as needed -Continue IVF hydration with 0.45% NS @ 100cc/hr. Monitor fluid status closely. Check daily weight. -I had discussed having the patient complete a screening colonoscopy at his office visit in July 2016. However, the family decided they were not interested in having a screening colonoscopy at that time. I will plan to discuss this again with the patient and the family as he would benefit from a colonoscopy approximately 8+ weeks after resolution of this acute event. Hypokalemia -Secondary to GI losses -Patient is able to take PO medications so there is no indication to give potassium IV and thus, I have discontinued this order and started the patient on KCl 40mEq PO BID. -Recheck BMP in AM Hyperlactatemia - Improving -Elevated lactic acid level secondary to hypoperfusion which is secondary to intravascular volume depletion. -Lactic acid level improved following aggressive IVF hydration -Recheck lactic acid level in the morning to monitor for resolution Acute Kidney Injury - Improving -Pre-renal secondary to GI loss -Continue IVF hydration and recheck BMP in AM Asymptomatic Bacteriuria -Despite urine being sent for culture, there is no indication for treatment. CHRONIC MEDICAL CONDITIONS: CAD with prior PCI and coronary stent placement: Patient is on appropriate medications with dual-antiplatelet therapy (aspirin + plavix) and statin which will be continued during his hospital stay. Type 2 Diabetes Mellitus: Hold home diabetic medications for now with plans to resume on discharge. Monitor blood glucose AC, HS and PRN. Treat with medium dose correction insulin AC, HS. Hyperlipidemia: Continue home statin Essential Hypertension: Patients blood pressures currently on the lower side. Hold home antihypertensive medications for now and resume as able. 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 Continue home seizure medication - Keppra Hypothyroidism: Continue home dose of levothyroxine. Depression, anxiety, possible pseudobulbar affect (PBA): Continue home medications. DEAN: Continue home CPAP settings at all times while patient is sleeping. VTE prophylaxis: Heparin 5000 mg every 12 hours, bilateral knee-high compression stockings Code Status: Full code Disposition: Potential discharge back to the [facility] within the next 1-2 days pending patient's clinical course. - Problems/Diagnosis (1) Hypokalemia, gastrointestinal losses Problem: Acute (2) Acute renal injury due to hypovolemia Problem: Acute (3) Dehydration Problem: Acute (4) Vomiting and diarrhea Problem: Acute (5) Gastroenteritis Problem: Acute
[2016-10-30] MEDS: 0.5 NORMAL SALINE 1,000 ML IV PRN (17:42)
[2016-10-30] MEDS: ROSUVASTATIN CALCIUM 10 MG TABLET PO SCH (20:14)
[2016-10-31] MEDS: CIPROFLOXACIN LACTATE/D5W 400 MG/200 ML BAG IV SCH (04:11)
[2016-10-31] MEDS: HEPARIN SODIUM,PORCINE 5,000 UNITS/ML VIAL SC SCH (04:12)
[2016-10-31] MEDS: 0.5 NORMAL SALINE 1,000 ML IV PRN (05:18)
[2016-10-31 06:14] VITALS: BP 121/76
[2016-10-31] MEDS: LEVOTHYROXINE SODIUM 25 MCG TABLET PO SCH (06:49)
[2016-10-31] MEDS: metroNIDAZOLE/SODIUM CHLORIDE 500 MG/100 ML BAG IV SCH (06:49)
[2016-10-31] MEDS: INSULIN LISPRO 100 UNITS/ML VIAL SC SCH (06:52)
[2016-10-31 08:15] LABS: Hematocrit 36.6 % (42.0-52.0); Hemoglobin 12.4 gm/dL (13.5-18.0); Mean Cell Volume 85.1 fl (78-100); Mean Corpuscular Hemoglobin 28.8 pg (27-31); Mean Corpuscular Hgb Conc 33.9 g/dl (32-36); Mean Platelet Volume 8.3 fl (6.0-9.5); Platelet Count 201 K/mm3 (150-450); Red Cell Distribution Width 12.9 % (11.5-14.0); White Blood Count 7.1 K/mm3 (4.0-10.5)
[2016-10-31 08:23] LABS: BUN/Creatinine Ratio 6.2 (9.0-21.6); Calcium * 7.8 mg/dL (7.9-10.9); Carbon Dioxide 30.3 mmol/L (24-32.6); Estimated Creat Clear 62.8; Potassium 3.3 mmol/L (3.4-4.6)
--- NOTE | 2016-10-31 08:59 | DS ---
(1) Hypokalemia, gastrointestinal losses Problem: Acute (2) Acute renal injury due to hypovolemia Problem: Resolved (3) Dehydration Problem: Resolved (4) Vomiting and diarrhea Problem: Acute (5) Gastroenteritis Problem: Acute Description of Stay: ADMISSION DATE: 10/29/2016 DISCHARGE DATE: 10/31/2016 ADMISSION HPI: The patient is a 56-year-old male who was brought to the emergency department via ambulance both last night and again this morning. I am his primary care provider and I was contacted yesterday by [facility] and was told that the patient was having diarrhea and his blood pressure was low and he was somewhat lethargic. Orders were given for the patient to be brought to the emergency department for further evaluation. The patient ended up being discharged back to his care facility yesterday evening. This morning I received another phone call from the facility stating that the patient's blood pressure was again low and he was lethargic. I again instructed them to have the patient brought to the emergency department for evaluation. There was no mention of bloody stools or black, tarry stools. The patient denies any abdominal pain but states he feels nauseated and has vomited multiple times and has also had multiple episodes of watery diarrhea. He states the diarrhea has been an issue for the past 3-4 days. According to the patient's care facility, there are no other residents at the facility with similar symptoms. The patient will be admitted to inpatient status for intravascular volume depletion secondary to diarrhea, acute kidney injury, hypotension with tachycardia. PROBLEM BASED HOSPITAL COURSE: Diarrhea -Likely infectious in etiology. Preliminary report on stool culture is no pathogens isolated. Patient treated with IV Cipro and flagyl during his admission and transitioned to PO cipro and PO flagyl at discharge and will complete an additional 5 days. C.Diff negative and stool occult blood negative on 10/28/2016. -Zofran for N/V as needed -I had discussed having the patient complete a screening colonoscopy at his office visit in July 2016. However, the family decided they were not interested in having a screening colonoscopy at that time. I will plan to discuss this again with the patient and the family as he would benefit from a colonoscopy approximately 8+ weeks after resolution of this acute event. Hypokalemia -Secondary to GI losses -KCl 40mEq PO BID for now -Recheck BMP on 11/03/2016 Hyperlactatemia - Improved -Elevated lactic acid level mainly secondary to hypoperfusion which is secondary to intravascular volume depletion. Metformin and TREMAINE (decreased excretion of Metformin due to TREMAINE) also likely contributing. Acute Kidney Injury - Improved -Pre-renal secondary to GI loss -Patient treated aggressively with IVF hydration during his admission Asymptomatic Bacteriuria -Despite urine being sent for culture, there is no indication for treatment. CHRONIC MEDICAL CONDITIONS: CAD with prior PCI and coronary stent placement: Patient is on appropriate medications with dual-antiplatelet therapy (aspirin + plavix) and statin which will be continued during his hospital stay. Type 2 Diabetes Mellitus: Hold home diabetic medications for now with plans to resume on discharge. Monitor blood glucose AC, HS and PRN. Treat with medium dose correction insulin AC, HS. Hyperlipidemia: Continue home statin Essential Hypertension: Patients blood pressures currently on the lower side. Hold home antihypertensive medications for now and resume as able. 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 Continue home seizure medication - Keppra Hypothyroidism: Continue home dose of levothyroxine. Depression, anxiety, possible pseudobulbar affect (PBA): Continue home medications. DEAN: Continue home CPAP settings at all times while patient is sleeping. VTE prophylaxis: Heparin 5000 mg every 12 hours, bilateral knee-high compression stockings FOLLOW-UP APPOINTMENTS: PCP within 1 week NEW OR CHANGED MEDICATIONS: -Cipro 500mg PO BID X 5 days -Flagyl 500mg PO Q8H X 5 days -KCl 40mEq PO BID (plan to discontinue once diarrhea has resolved) -Zofran ODT 4mg PO Q6H PRN N/V DISCONTINUED MEDICATIONS: -None RADIOLOGY REPORTS: CT of the abdomen and pelvis without contrast on 10/29/2016: Exam is limited due to lack of IV and oral contrast. Lung bases are essentially clear. The liver and spleen appear unremarkable on noncontrast imaging. No secondary signs of inflammatory change within the gallbladder. No calcified gallstones. Adrenal glands are within normal limits. There is no nephrolithiasis or obstructive uropathy. The pancreas demonstrates no peripancreatic inflammatory change. There is a small hiatal hernia. The stomach is distended. No evidence for intestinal obstruction appreciated. The appendix is normal. Colon is slightly redundant and fluid filled compatible with diarrhea. Nonspecific density within the mesentery of the left lower quadrant could represent reactive lymph nodes are focal nonaggressive inflammatory change. Bladder is unremarkable. There is some atherosclerosis of the aorta. No free air or free fluid. No loculated fluid collection. Fat-containing left inguinal hernia. Osseous structures demonstrate no suspicious abnormality. No definable acute intra-abdominal or pelvic process on this noncontrast CT scan. Procedures Performed: none Discharge Disposition: [facility] Disposition: [facility] Condition: Stable Discharge Activity: Activity as tolerated Discharge Diet: Consistent carbs, Resume usual diet Referrals: Heather Conner DO [Primary Care Provider] - Additional Patient Instructions (free text): Follow-up with PCP within 1 week on 11-07-16 @ 9:00am. Prescriptions (Any new or edited meds): Ondansetron [Zofran Odt] 4 mg PO Q6H PRN #20 tab PRN Reason: Nausea And Vomiting Complete Home Medications List: Complete Home Medication List: Coricidin Hbp Cold & Flu Tab PRN 07/17/12 Acetaminophen [Tylenol] 650 mg PO Q4H PRN 10/29/16 Amlodipine Besylate 5 mg PO DAILY 10/29/16 Amoxicillin 500 mg PO PRN PRN 10/29/16 Aspirin 325 mg PO DAILY 10/29/16 Atorvastatin Calcium 40 mg PO HS 10/29/16 Bisacodyl [Dulcolax Suppository] 10 mg RC DAILY PRN 10/29/16 Chlorhexidine Gluconate [Chlorhexidine Gluconate 0.12%] 10 ml MM BID 10/29/16 Chlorthalidone [Hygroton] 50 mg PO DAILY 10/29/16 Clopidogrel Bisulfate [Plavix] 75 mg PO DAILY 10/29/16 Dextran 70/Hypromellose [Nature's Tears Eye Drops] 15 ml OP TID PRN 10/29/16 Diazepam [Diastat Rectal Gel] 10 mg RC DAILY PRN 10/29/16 Diphenhydramine HCl [Diphenhist] 25 mg PO QID PRN 10/29/16 Doxazosin Mesylate 8 mg PO DAILY 10/29/16 Eyelid Cleanser Comb No.7 [Ocusoft Lid Scrub] 1 each TP PRN 10/29/16 Glucagon,Human Recombinant [Glucagen] 1 mg IJ PRN PRN 10/29/16 Lactulose [Enulose] 30 ml PO DAILY PRN 10/29/16 Levothyroxine Sodium [Synthroid] 25 mcg PO DAILY 10/29/16 Lisinopril [Zestril] 40 mg PO DAILY 10/29/16 Loratadine 10 mg PO DAILY 10/29/16 Magnesium Hydroxide [Milk Of Magnesia] 30 ml PO DAILY PRN 10/29/16 Metoprolol Tartrate [Lopressor] 100 mg PO BID 10/29/16 Naphazoline HCl/Pheniramine [Visine-A Eye Drops] 15 ml OP TID PRN 10/29/16 Ondansetron [Zuplenz] 4 mg PO Q8H PRN 10/29/16 PARoxetine HCL [Paxil] 10 mg PO DAILY 10/29/16 Polyethylene Glycol 3350 [Miralax] 17 gm PO DAILY 10/29/16 Sennosides/Docusate Sodium [Senokot-S] 2 tab PO BID 10/29/16 glipiZIDE [Glipizide] 10 mg PO BID 10/29/16 levETIRAcetam [Levetiracetam] 250 mg PO QAM 10/29/16 levETIRAcetam [Levetiracetam] 500 mg PO QPM 10/29/16 metFORMIN HCL [Fortamet] 1,000 mg PO DAILY 10/29/16 sitaGLIPtin PHOSPHATE [Januvia] 100 mg PO DAILY 10/29/16 Ciprofloxacin HCl [Cipro] 500 mg PO BID #10 tablet 10/31/16 Ondansetron [Zofran Odt] 4 mg PO Q6H PRN #20 tab 10/31/16 Potassium Chloride [Potassium Chloride 40 meq/15ml Liquid] 40 meq PO DAILY #1 btl 10/31/16 metroNIDAZOLE [Flagyl] 500 mg PO Q8H #15 tablet 10/31/16 Amb Orders for Discharge: Basic Metabolic Panel Time Frame: 11/03/16, Facility: [facility], Location: Laboratory
[2016-10-31] MEDS ORDERED: metroNIDAZOLE 500 MG TABLET PO SCH (16:00)
[2016-10-31] MEDS ORDERED: CIPROFLOXACIN HCL 500 MG TABLET PO SCH (21:00)
== END 2016-10-31 09:45 | DRG 392 ==
LOC: ER 11:58 → MS 15:09 → OBSVTOIN 16:33
PROVIDERS: ADMIT Internal Medicine; ATTEND Internal Medicine
DX: A09 Infectious gastroenteritis and colitis, unspecified (principal); N17.9 Acute kidney failure, unspecified; E86.1 Hypovolemia; E87.6 Hypokalemia; E86.0 Dehydration; R82.71 Bacteriuria; E11.9 Type 2 diabetes mellitus without complications; E78.5 Hyperlipidemia, unspecified; I10 Essential (primary) hypertension; E03.9 Hypothyroidism, unspecified; Z79.82 Long term (current) use of aspirin
CPT/HCPCS: 36415; 74176; 80048; 80053; 83605; 85007; 85025; 85027; 87040; 87045; 87046; 87081; 94660; 96361; 96374; 96375; 97163; 97165; 99284; G8987; G8988; G8989; J2405